=== PATIENT | male | born 1985 | race Caucasian/White ===

== ENCOUNTER 2023-02-19 15:36 | Emergency (ER) | payer SELFPAY ==
--- NOTE | 2023-02-19 16:11 | ED Upper Extremity ---
General Stated Complaint: FALL - LEFT ARM INJ Source: patient Exam Limitations: no limitations History of Present Illness Date Seen by Provider: Feb 19, 2023 Time Seen by Provider: 16:10 Initial Comments Patient is a 37-year-old male who presents ED with left upper extremity pain. Patient states he was on a 12 foot ladder going up onto a roof 15 minutes before arrival and loss his footing and fell. States he was about 9 to 10 foot when he fell off landed on his left arm. Patient heard a snap. He states he had to adjust his arm and manipulate to relieve pain. Pain located left shoulder left wrist left elbow. Palpable pulses distally of the left hand. Denies hitting his head, loss of conscious, chest pain, shortness of breath, Phill pain, mid to lower back pain. Patient took hydrocodone about an hour and a half ago. Patient denies headache, dizziness, nausea vomiting, diarrhea, chest pain, shortness of breath, abdominal pain Allergies and Home Medications Allergies Coded Allergies: No Known Drug Allergies (Unverified , 02/19/23) Patient Home Medication List Home Medication List Reviewed: Yes Ondansetron (Ondansetron Odt) 4 Mg Tab.rapdis, 4 MG SL Q4H PRN for NAUSEA/VOMITING Prescribed by: JEWELS PHAM on 02/19/23 1720 Oxycodone HCl/Acetaminophen (Oxycodone-Acetaminophen 10-325) 10 Mg-325 Mg Tablet, 1 TAB PO Q4H PRN for PAIN Prescribed by: JEWELS PHAM on 02/19/23 1720 Review of Systems Constitutional: No chills, No diaphoresis, No malaise, No weakness EENTM: No ear pain, No blurred vision, No vision loss, No mouth pain, No mouth swelling Respiratory: No cough, No orthopnea, No short of breath Cardiovascular: No chest pain Gastrointestinal: No abdominal pain, No diarrhea Genitourinary: No decreased output, No discharge Musculoskeletal: joint pain, joint swelling Skin: No change in color, No change in hair/nails All Other Systems Reviewed Negative Unless Noted: Yes Physical Exam Vital Signs Vital Signs - First Documented 02/19/23 16:02 Pulse 68 Resp 20 B/P (MAP) 163/99 (120) Pulse Ox 96 O2 Delivery Room Air Capillary Refill : Height, Weight, BMI Height: '" Weight: lbs. oz. kg; BMI Method: General Appearance: WD/WN, no apparent distress HEENT: PERRL/EOMI, normal ENT inspection, TMs normal, pharynx normal Neck: non-tender, full range of motion, supple Cardiovascular: regular rate, rhythm, no edema, no gallop, no JVD Respiratory: chest non-tender, lungs clear, normal breath sounds, no respiratory distress, no accessory muscle use Gastrointestinal: normal bowel sounds, non tender, soft, no organomegaly Back: normal inspection, no CVA tenderness Shoulder: pain (Tenderness to left anterior and posterior shoulder. Left mid humerus tenderness with bone deformity) Elbow/Forearm: Left, bone tenderness (Left anterior lateral posterior elbow tenderness without evidence of dislocation.) Wrist: Yes bone tenderness (Tenderness left distal radius and ulna. Palpable pulses. Marble Installation Helper strength 5-5), Yes pain, Yes soft tissue tenderness Neurologic/Psychiatric: crown buffer II-XII nml as tested, no motor/sensory deficits, alert, normal mood/affect, oriented x 3 Progress/Results/Core Measures Results/Orders My Orders Orders - NGA SHARPE Shoulder, Left, 3 Views (02/19/23 16:06) Wrist, Left, 3 Views Or More (02/19/23 16:06) Fentanyl Inj (Sublimaze Injection) (02/19/23 16:18) Humerus, Left, 2 Views (02/19/23 16:41) Elbow, Left, 2 Views (02/19/23 16:06) Hydromorphone Injection (Dilaudid Inject (02/19/23 17:15) Hydromorphone Injection (Dilaudid Inject (02/19/23 18:00) Fentanyl Inj (Sublimaze Injection) (02/19/23 18:36) Medications Given in ED Current Medications Medications Dose Ordered Sig/Kelton Route Start Time Stop Time Status Last Admin Dose Admin Hydromorphone HCl 0.5 mg ONCE ONCE IV 02/19/23 17:15 02/19/23 17:16 DC 02/19/23 17:21 0.5 MG Hydromorphone HCl 0.5 mg ONCE ONCE IV 02/19/23 18:00 02/19/23 18:01 DC 02/19/23 17:58 0.5 MG Vital Signs/I&O 02/19/23 02/19/23 16:02 18:57 Pulse 68 69 Resp 20 20 B/P (MAP) 163/99 (120) 164/93 Pulse Ox 96 96 O2 Delivery Room Air Room Air Departure Communication (PCP) Nonactivated trauma. Patient fell about 9 to 10 feet off a 12 foot ladder while getting on the roof. Landed on his left arm. Denies hitting his head or loss of consciousness. Patient states he heard a snap. States his arm turned backwards. States he was able to manipulate his arm with some improvement in alignment but reports a deformity mid humerus. Complaining of left shoulder, left elbow and left wrist pain. Patient on arrival neurovascular tact left u pper extremity. Able to extend and flex his left wrist. No evidence of radial nerve injury. No evidence suggesting compartment syndrome. Patient was given a dose of fentanyl and Dilaudid for pain control. Patient was discussed with orthopedic Dr. Gallegos regarding the imaging as patient suffered a comminuted displaced abnormally angulated fracture of the left mid humeral diaphysis. Recommends coaptation splint. Apply pressure to help reduce some of the fragments when putting oin splint. X-ray of the right wrist shows a impacted and intra-articular distal radius fracture without significant displacement or angulation. There also appears to be an ulnar styloid fracture. X-ray of the left elbow shows mildly displaced radial head fracture and radial neck fracture. Large joint effusion. No evidence of dislocation. Patient was placed in a sugar-tong splint. Recommends following up in the office by calling tomorrow morning. Discharge with pain medication. Discussed with patient that if he develops any increasing pain of that left arm he needs return back to the ED for further evaluation. This type of fracture increases chance of compartment syndrome. No evidence suggesting nerve injury at this time. Neurovascular intact left arm. Patient has no head pain, neck pain, chest pain, abdominal pain, middle lower back pain suggesting additional imaging. No distal numbness and tingling. No evidence of open fracture. Does have a small abrasion to the left posterior elbow. Follow-up with Dr. Gallegos office by calling tomorrow morning. Discharged with oxycodone Impression Primary Impression: Closed fracture of humerus Additional Impressions: Wrist fracture Radial head fracture Disposition: 01 HOME, SELF-CARE Condition: Stable Departure-Patient Inst. Decision time for Depature: 17:17 Referrals: MARLON GALLEGOS MD Patient Instructions: Upper Arm Fracture ED Add. Discharge Instructions: Recommend follow-up with orthopedic tomorrow by contacting their office. If increasing pain to return back to ED. Provided pain medication. If skin color changes left arm to return back to ED Scripts Ondansetron (Ondansetron Odt) 4 Mg Tab.rapdis 4 MG SL Q4H PRN for NAUSEA/VOMITING, #8 TAB Prov: NGA SHARPE 02/19/23 Oxycodone HCl/Acetaminophen (Oxycodone-Acetaminophen 10-325) 10 Mg-325 Mg Tablet 1 TAB PO Q4H PRN for PAIN, #20 TAB Prov: NGA SHARPE 02/19/23 Work/School Note: Work Release Form Date Seen in the Emergency Department: Feb 19, 2023 Return to Work: Feb 25, 2023 NGA SHARPE Feb 19, 2023 16:11
[2023-02-19] MEDS ORDERED: fentaNYL INJ 100 MCG/2 ML AMP IVP STA ×2 (16:18→18:36)
--- NOTE | 2023-02-19 16:58 | Diagnostic Imaging Report ---
EXAMINATION: Left humerus radiographs, 2 views. COMPARISON: None. HISTORY: 37-year-old male, left humerus pain. Fracture. FINDINGS: There is a comminuted, displaced, and abnormally angulated fracture of the mid humeral diaphysis. There is no identified radiopaque foreign body. IMPRESSION: 1. Comminuted, displaced, and abnormally angulated fracture of the left mid humeral diaphysis. Dictated by: Dictated on workstation # [id number]
--- NOTE | 2023-02-19 17:01 | Diagnostic Imaging Report ---
EXAMINATION: Left shoulder radiographs, 3 views. COMPARISON: None. HISTORY: 37-year-old male, shoulder pain. Fall. FINDINGS: The acromioclavicular joint is normally aligned. There are no acromioclavicular degenerative changes. Humeral head is normally positioned relative to the glenoid. The glenohumeral joint space is well maintained. There is a comminuted, displaced, abnormally angulated fracture of the left mid humeral diaphysis. There is no additional identified more proximally located fracture. IMPRESSION: 1. Comminuted, displaced, abnormally angulated fracture of the mid left humeral diaphysis. 2. No additional identified acute fracture specifically at the level of the left shoulder. Dictated by: Dictated on workstation # [id number]
--- NOTE | 2023-02-19 17:02 | Diagnostic Imaging Report ---
EXAMINATION: Left elbow radiographs, 2 views. COMPARISON: None. HISTORY: 37-year-old male, fall. Left elbow pain. FINDINGS: There is a comminuted, displaced, and abnormally angulated fracture of the left mid humeral diaphysis. There is a large elbow joint effusion. There is a mildly displaced fracture of the radial head and neck. The elbow is not currently dislocated. There is degenerative type enthesopathy at the distal triceps tendon insertion. There are some limitations of the study given difficulties with positioning of the frontal view. IMPRESSION: 1. Mildly displaced fracture of the left radial head and neck. 2. Large elbow joint effusion. 3. Elbow is not currently dislocated. 4. Comminuted, displaced, and abnormally angulated fracture of the left mid humeral diaphysis. Dictated by: Dictated on workstation # [id number]
--- NOTE | 2023-02-19 17:04 | Diagnostic Imaging Report ---
INDICATION: Fall with left wrist pain. TIME OF EXAM: 4:56 PM. FINDINGS: Three views of the left wrist demonstrate a comminuted impacted and intra-articular fracture of the distal radius. No significant displacement or angulation is seen. There appears to be a fracture of the ulnar styloid as well. The carpal bones are intact. The visualized metacarpals are unremarkable. IMPRESSION: Impacted and intra-articular distal radius fracture without significant displacement or angulation. There also appears to be an ulnar styloid fracture. Dictated by: Dictated on workstation # [id number]
[2023-02-19] MEDS ORDERED: HYDROmorphone 2 MG/ML VIAL (DILAUDID) IV ONE ×2 (17:15→18:00)
[2023-02-19] MEDS ORDERED: OXYC-556 PO (17:20)
[2023-02-19] MEDS ORDERED: ONDA4TAB11 SL (17:20)
[2023-02-19 18:57] VITALS: BP 164/93
== END 2023-02-19 19:05 | disposition home or self-care (01) ==
LOC: ER 15:37
DX: S42.352A Displaced comminuted fracture of shaft of humerus, left arm, initial encounter for closed fracture (principal); S52.572A Other intraarticular fracture of lower end of left radius, initial encounter for closed fracture; S52.122A Displaced fracture of head of left radius, initial encounter for closed fracture; S52.132A Displaced fracture of neck of left radius, initial encounter for closed fracture; S52.612A Displaced fracture of left ulna styloid process, initial encounter for closed fracture; W11.XXXA Fall on and from ladder, initial encounter
CPT/HCPCS: 29105; 73030; 73060; 73070; 73110

== ENCOUNTER 2023-02-21 05:35 | Outpatient (CLI) | payer SELFPAY ==
[~2023-02-21] VITALS: Ht 193 cm; Wt 109.1 kg
[~2023-02-21 05:35] MED LIST: ONDA4TAB11 SL; OXYC-556 PO
== END 2023-02-21 13:08 | disposition home or self-care (01) ==
LOC: PREOP 05:35
PROVIDERS: ATTEND Orthopaedic Surgery
DX: Z01.818 Encounter for other preprocedural examination (principal)

== ENCOUNTER 2023-02-22 08:54 | Day surgery (SDC) | payer SELFPAY ==
--- NOTE | 2023-02-21 13:54 | HISTORY AND PHYSICAL ---
DATE OF SERVICE: 02/22/2023 This will be for outpatient surgery on 02/22/2023 for internal fixation of his left humerus and left distal radius. HISTORY: The patient is a 37-year-old right-hand dominant gentleman who fell from a roof on Saturday. He was evaluated in the Emergency Department where he underwent closed reduction by ER provider for displaced left humeral shaft fracture, an impacted distal radius fracture, and nondisplaced radial neck fracture. He denies paresthesias. He reports no prior history of arm problems. Radiographs reveal a comminuted midshaft left humerus fracture what appears to be a nondisplaced radial head fracture, but there is not a good AP projection and what appears to be a minimally displaced intra-articular distal radius fracture, though there is not any adequate lateral radiograph. REVIEW OF SYSTEMS: No chest pain, no shortness of breath, no dysuria. PAST MEDICAL HISTORY: None. PAST SURGICAL HISTORY: Herniorrhaphy. SOCIAL HISTORY: The patient is self-employed. FAMILY HISTORY: Noncontributory. MEDICATIONS: Oxycodone. ALLERGIES: NO KNOWN DRUG ALLERGIES. SOCIAL HISTORY: The patient denies tobacco use. He drinks alcohol socially. PHYSICAL EXAMINATION: GENERAL: The patient is well-developed, well-nourished, in no acute distress. HEENT: Normocephalic, atraumatic. Pupils equal, round, reactive to light. Oropharynx is clear. NECK: Supple. No lymphadenopathy. LUNGS: Clear to auscultation bilaterally. HEART: Regular rhythm. ABDOMEN: Soft, nontender, nondistended. EXTREMITIES: Left upper extremity was splinted. He has intact MCP extension, finger abduction, thumb IP flexion and extension. Sensation is intact to light touch in radial, ulnar and median distribution. IMPRESSION: Displaced left humeral shaft fracture and a distal radius fracture. PLAN: Open reduction internal fixation of left humerus internal with closed reduction and percutaneous pin fixation of distal radius versus open reduction and internal fixation. The risks, benefits, options, ramifications and recovery were discussed at length with the patient. He understands and wishes to proceed. Job ID: [id number] DocumentID: [id number] Dictated Date: 02/21/2023 10:17:10 Grain Picker Date: 02/21/2023 13:52:00 Dictated By: MARLON BROWN MD
[~2023-02-22] VITALS: Ht 193 cm; Wt 109.1 kg
[2023-02-22] VITALS (11 sets, daily range): BP systolic 130–159; BP diastolic 72–106
[2023-02-22] MEDS ORDERED: fentaNYL INJ 100 MCG/2 ML AMP IV ONE (09:45)
[2023-02-22] MEDS ORDERED: ceFAZolin INJECTION 1,000 MG ONE (09:53)
[2023-02-22] MEDS ORDERED: NS (IVPB) 50 ML ONE ×2 (09:53→11:05)
[2023-02-22] MEDS ORDERED: ceFAZolin INJECTION 1,000 MG in NS (IVPB) 50 ML IV ONE (10:00)
[2023-02-22] MEDS ORDERED: CATHETER FLUSH 10 ML SYR IVP PRN (10:00)
[2023-02-22] MEDS: LACTATED RINGERS 1,000 ML IV PRN ×2 (10:00→10:55)
[2023-02-22] MEDS ORDERED: morphine INJ 10 MG/ML 1ML (SYR OR VIAL) IVP ONE (10:15)
[2023-02-22] MEDS ORDERED: BUPIVACAINE 0.25% 30 ML (SENSORCAINE) VIAL ONE (10:15)
[2023-02-22] MEDS ORDERED: HYDROmorphone 2 MG/ML VIAL (DILAUDID) IV ONE (10:15)
[2023-02-22] MEDS ORDERED: ONDANSETRON 4 MG/2 ML (SDV) Z0FRAN IVP PRN (10:15)
[2023-02-22] MEDS ORDERED: proPOfol 200 MG/20 ML (DIPRIVAN) VIAL IV ONE (10:20)
[2023-02-22] MEDS ORDERED: LIDOCAINE PF 2% 5 ML (XYLOCAINE) VIAL ONE (10:20)
[2023-02-22] MEDS ORDERED: fentaNYL INJ 100 MCG/2 ML AMP ONE (10:20)
[2023-02-22] MEDS ORDERED: ONDANSETRON 4 MG/2 ML (SDV) Z0FRAN ONE (10:20)
[2023-02-22] MEDS ORDERED: MIDAZOLAM 2 MG/2 ML (VERSED) VIAL ONE (10:21)
--- NOTE | 2023-02-22 10:27 | Progress Note-Pre Operative ---
Pre-Operative Progress Note Date of Available H&P: Feb 21, 2023 Date H&P Reviewed: Feb 22, 2023 Time H&P Reviewed: 10:14 Changes from last HP none Pre-Operative Diagnosis: left humeral shaft and distal radius fractures MARLON BROWN MD Feb 22, 2023 10:27
--- NOTE | 2023-02-22 10:28 | Progress Note-Post Operative ---
Post-Operative Progess Note Surgeon (s)/Latex Foam Worker (s) Surgeon MARLON BROWN MD Latex Foam Worker: Peña Rubio Pre-Operative Diagnosis left humeral shaft and distal radius fractures Post-Operative Diagnosis left humeral shaft and distal radius fractures Procedure & Operative Findings Date of Procedure 02/22/23 Procedure Performed/Findings ORIF left humerus shaft fracture and left distal radius closed reduction and percutaneous pin fixation Anesthesia Type GETA Estimated Blood Loss Estimated blood loss (mL): 200ml Specimens/Packing Specimens Removed none Packing: none MARLON BROWN MD Feb 22, 2023 10:28
[2023-02-22] MEDS ORDERED: oxyCODONE/APAP 5/325MG (PERCOCET 5) TABLET PO PRN (10:45)
[2023-02-22] MEDS ORDERED: ceFAZolin INJECTION 2,000 MG ONE (11:04)
[2023-02-22] MEDS ORDERED: HYDROmorphone 2 MG/ML VIAL (DILAUDID) ONE ×2 (11:06→13:04)
[2023-02-22] MEDS ORDERED: MEPERIDINE (DEMEROL) INJ 50 MG/ML ONE (12:41)
[2023-02-22] MEDS ORDERED: SEVOFLURANE (ULTANE) 15 ML INHAL SOLN ONE (12:44)
[2023-02-22] MEDS ORDERED: MEPERIDINE (DEMEROL) INJ 50 MG/ML IVP ONE (13:00)
--- NOTE | 2023-02-22 14:14 | Anesthesia-General Post-Op ---
General Patient Condition Mental Status/LOC: Same as Preop Cardiovascular: Satisfactory Nausea/Vomiting: Absent Respiratory: Satisfactory Pain: Controlled Complications: Absent Post Op Complications Complications None Follow Up Care/Instructions Patient Instructions None needed. Anesthesia/Patient Condition Patient Condition Patient is doing well, no complaints, stable vital signs, no apparent adverse anesthesia problems. No complications reported per nursing. ROCIO DWYER DO Feb 22, 2023 14:14
--- NOTE | 2023-02-22 17:37 | Diagnostic Imaging Report ---
INDICATION: ORIF of humeral fracture COMPARISON: 02/19/2023 IMPRESSION: ORIF of mid humeral shaft fracture utilizing low contact plate and screw fixation. Air Kerma is 0.61 mGy. Please see procedure report for more details. Dictated by: Dictated on workstation # [id number]
--- NOTE | 2023-02-22 17:52 | Diagnostic Imaging Report ---
INDICATION: Radial fracture. Fluoroscopy was utilized during placement of K-wires across the distal radial fracture line. Final image reveals near anatomic alignment of fracture fragments without obvious complication. IMPRESSION: Open reduction and internal fixation of distal radial fracture fragments. Dictated by: Dictated on workstation # [id number]
--- NOTE | 2023-02-22 20:55 | OPERATIVE REPORT ---
DATE OF SERVICE: 02/22/2023 PREOPERATIVE DIAGNOSES: 1. Closed displaced left humerus shaft fracture. 2. Closed displaced intra-articular left distal radius fracture. POSTOPERATIVE DIAGNOSES: 1. Closed displaced left humerus shaft fracture. 2. Closed displaced intra-articular left distal radius fracture. PROCEDURES: 1. Open reduction and internal fixation of the left humerus. 2. Closed reduction and percutaneous pin fixation of the left distal radius. SURGEON: Kirk Brown MD PROCESS DEVELOPMENT MANAGER: Peña Rubio, who assisted throughout the procedure and closed the incision. ANESTHESIA: General endotracheal by Dr. Mejia. TOURNIQUET TIME: Not applicable. ESTIMATED BLOOD LOSS: 200 mL. MATERIALS: Synthes 7-hole 4.5 plate. The patient was transferred to recovery room awake and in stable condition. POSTOPERATIVE PLAN: Early range of motion of the elbow and shoulder with protected activities for the left wrist for 6 weeks with pin fixation for 4 weeks. STATEMENT OF MEDICAL NECESSITY: The patient is a 37-year-old right hand dominant gentleman who fell on Saturday on his left upper extremity. He had a comminuted left midshaft humerus fracture, a nondisplaced radial head fracture and an intra-articular dorsally angulated distal radius fracture. The patient was counseled regarding treatment options and elected to proceed with surgical intervention. DESCRIPTION OF PROCEDURE: After risks and benefits of the procedure were discussed and questions were answered and informed consent was signed and placed on the chart, the operative sites were confirmed in the preoperative holding initialed by surgeon. The patient was then transported to the operating room and after adequate levels of general endotracheal anesthetic were obtained, a timeout was called confirming the operative site. The elbow was inspected fluoroscopically and had full range of motion with a nondisplaced radial head fracture noted. The distal radius was then viewed fluoroscopically. This was a far distal fracture was not felt to be amenable to plating. This could be reduced however and length was maintained. The left upper extremity was then prepped and draped in the usual sterile fashion. An anterolateral approach was used to the humerus. The underlying soft tissues were carefully dissected. The plane between the biceps and [ ] was utilized and then the [ ] was elevated off of the humerus in a subperiosteal fashion. No retractors were placed directly on the humerus and the humerus was exposed subperiosteally. There was a large butterfly fragment, which was reduced under direct visualization. A 7-hole 4.5 compression plate was placed and this was placed under direct visualization to ensure there were no soft tissues underlying the plate. Three cortical screws were placed proximally and three cortical screws distally. Two central screw holes were used to lag to the butterfly fragment. There was some step-off of the butterfly fragment distally, but this was felt to be acceptable. No far cortical penetration was performed. The radial nerve was inspected and intact with no impingement noted. The butterfly fragment was exposed to ensure there was no soft tissue entrapped within that. The humerus was taken through range of motion and patient had full shoulder motion with normal rotation. The plate and screw construct was then closely inspected again to ensure that there was no soft tissue impingement there were at the fracture sites. None was noted. The wound was copiously irrigated. 0 Vicryl was used for the deep subcutaneous layer, 3-0 Vicryl for the superficial subcutaneous layer, felipe used on the skin. A soft dressing was applied and under fluoroscopic visualization, the distal radius was reduced and two 0.5 K-wires were placed in a crisscross fashion, one distally and one proximally. This captured the fragments and kept radius out to length. There was marked dorsal comminution. The wrist was taken through range of motion under live time fluoroscopy and the repair was stable. The pins were bent and cut. A sandwich type splint was placed just over the distal forearm not involving the elbow and the patient was transported to the recovery room awake and in stable condition. Job ID: [id number] DocumentID: [id number] Dictated Date: 02/22/2023 12:38:25 Sanding Supervisor Date: 02/22/2023 20:53:00 Dictated By: KIRK BROWN MD
== END 2023-02-22 14:43 | disposition home or self-care (01) ==
LOC: SDC 08:54
PROVIDERS: ATTEND Orthopaedic Surgery
DX: S42.302A Unspecified fracture of shaft of humerus, left arm, initial encounter for closed fracture (principal); S52.572A Other intraarticular fracture of lower end of left radius, initial encounter for closed fracture; W13.2XXA Fall from, out of or through roof, initial encounter
CPT/HCPCS: 76000; 87081

== ENCOUNTER 2023-04-18 15:29 | Outpatient (CLI) | payer MEDICAID ==
[~2023-04-18] VITALS: Ht 193 cm; Wt 109.1 kg
== END 2023-04-18 17:24 | disposition home or self-care (01) ==
LOC: PREOP 15:29
PROVIDERS: ATTEND Orthopaedic Surgery
DX: Z01.818 Encounter for other preprocedural examination (principal)

== ENCOUNTER 2023-04-24 09:25 | Day surgery (SDC) | payer MEDICAID ==
--- NOTE | 2023-04-18 14:06 | HISTORY AND PHYSICAL ---
ADMISSION HISTORY AND PHYSICAL This will be for outpatient surgery on 04/24/2023 for left humerus internal fixation. HISTORY: The patient is a 37-year-old right hand dominant gentleman who underwent internal fixation for left humeral shaft fracture on 02/22/2023. He has been doing well and presented for followup and his hardware had failed distally with displacement of the fracture. Because of this is recommended the patient undergo operative fixation. REVIEW OF SYSTEMS: No chest pain, no shortness of breath. No dysuria. PAST MEDICAL HISTORY: None. PAST SURGICAL HISTORY: Herniorrhaphy. SOCIAL HISTORY: The patient is self-employed. FAMILY HISTORY: Noncontributory. MEDICATIONS: Hydrocodone as needed. ALLERGIES: No known. SOCIAL HISTORY: The patient denies tobacco use. He drinks alcohol socially. PHYSICAL EXAMINATION: GENERAL: The patient is well-developed, well-nourished, in no acute distress. HEENT: Normocephalic, atraumatic. Pupils are equal, round and reactive to light. Oropharynx is clear. NECK: Supple. No lymphadenopathy. LUNGS: Clear to auscultation bilaterally. HEART: Regular rate and rhythm. ABDOMEN: Soft, nontender, nondistended. EXTREMITIES: The left arm demonstrates well-healed incision over his humerus; however, there is some deformity noted and motion noted with stress at the fracture site. Radiographs reveal a comminuted displaced fracture with cutout of the hardware distally. IMPRESSION: Displaced left humerus fracture, status post internal fixation. PLAN: Open reduction and internal fixation with revision fixation and possible bone grafting. The risks, benefits, options, ramifications and recovery were discussed at length with the patient. He understands and wishes to proceed. This will be for outpatient surgery on 04/24/2023. Job ID: [id number] DocumentID: [id number] Dictated Date: 04/18/2023 11:29:52 Quilt Maker Date: 04/18/2023 12:53:00 Dictated By: MARLON BROWN MD
[2023-04-24] VITALS (12 sets, daily range): BP systolic 96–155; BP diastolic 53–102
[~2023-04-24] VITALS: Ht 193 cm; Wt 109.1 kg
[~2023-04-24 09:25] MED LIST changes: +oxyCODONE/APAP 5/325MG (PERCOCET 5) TABLET PO PRN
[2023-04-24] MEDS ORDERED: ceFAZolin INJECTION 1,000 MG in NS (IVPB) 50 ML IV ONE (09:45)
[2023-04-24] MEDS: LACTATED RINGERS 1,000 ML IV PRN ×2 (10:29→13:09)
--- NOTE | 2023-04-24 11:08 | Progress Note-Pre Operative ---
Pre-Operative Progress Note Date of Available H&P: Apr 18, 2023 Date H&P Reviewed: Apr 24, 2023 Time H&P Reviewed: 11:07 Changes from last HP none Pre-Operative Diagnosis: left humerus shaft delayed union MARLON BROWN MD Apr 24, 2023 11:08
--- NOTE | 2023-04-24 11:09 | Progress Note-Post Operative ---
Post-Operative Progess Note Surgeon (s)/Manager Integrated (s) Surgeon MARLON BROWN MD Manager Integrated: Peña Rubio Pre-Operative Diagnosis left humerus shaft delayed union Post-Operative Diagnosis left humerus shaft delayed union Procedure & Operative Findings Date of Procedure 04/24/23 Procedure Performed/Findings hardware removal and open reduction and internal fixation of the left humerus Anesthesia Type GETA Estimated Blood Loss Estimated blood loss (mL): 400ml Specimens/Packing Specimens Removed none Packing: none MARLON BROWN MD Apr 24, 2023 11:09
[2023-04-24] MEDS ORDERED: proPOfol 200 MG/20 ML (DIPRIVAN) VIAL IV ONE ×2 (11:25→12:09)
[2023-04-24] MEDS ORDERED: fentaNYL INJ 100 MCG/2 ML AMP ONE ×2 (11:25→12:09)
[2023-04-24] MEDS ORDERED: ONDANSETRON 4 MG/2 ML (SDV) Z0FRAN ONE (11:25)
[2023-04-24] MEDS ORDERED: LIDOCAINE PF 2% 5 ML (XYLOCAINE) VIAL ONE (11:25)
[2023-04-24] MEDS ORDERED: MIDAZOLAM 2 MG/2 ML (VERSED) VIAL ONE (11:25)
[2023-04-24] MEDS ORDERED: BUPIVACAINE 0.25% 30 ML (SENSORCAINE) VIAL ONE (11:33)
[2023-04-24] MEDS ORDERED: ceFAZolin INJECTION 1,000 MG ONE (12:04)
[2023-04-24] MEDS ORDERED: ceFAZolin INJECTION 1,000 MG VIAL IV ONE (12:15)
[2023-04-24] MEDS ORDERED: SEVOFLURANE (ULTANE) 15 ML INHAL SOLN ONE (13:19)
[2023-04-24] MEDS ORDERED: BUPIVACAINE 0.25% 30 ML (SENSORCAINE) VIAL INJ ONE (13:54)
--- NOTE | 2023-04-24 13:55 | Anesthesia-General Post-Op ---
General Patient Condition Mental Status/LOC: Same as Preop Cardiovascular: Satisfactory Nausea/Vomiting: Absent Respiratory: Satisfactory Pain: Controlled Complications: Absent Post Op Complications Complications None Follow Up Care/Instructions Patient Instructions None needed. Anesthesia/Patient Condition Patient Condition Patient is doing well, no complaints, stable vital signs, no apparent adverse anesthesia problems. No complications reported per nursing. CHRIS LOZOYA BISQUE WARE DIPPER Apr 24, 2023 13:55
[2023-04-24] MEDS ORDERED: HYDROmorphone 2 MG/ML VIAL (DILAUDID) IV ONE (14:00)
[2023-04-24] MEDS ORDERED: fentaNYL INJ 100 MCG/2 ML AMP IVP ONE (14:00)
[2023-04-24] MEDS ORDERED: ONDANSETRON 4 MG/2 ML (SDV) Z0FRAN IVP PRN (14:00)
[2023-04-24] MEDS ORDERED: MEPERIDINE (DEMEROL) INJ 50 MG/ML IVP ONE (14:00)
[2023-04-24] MEDS ORDERED: morphine INJ 10 MG/ML 1ML (SYR OR VIAL) IVP ONE (14:00)
--- NOTE | 2023-04-24 15:39 | Diagnostic Imaging Report ---
INDICATION: Left humeral fracture, revision. TECHNIQUE: Intraoperative views were obtained with the portable intensifier in Surgery. Two views were obtained with 14.8 seconds of fluoroscopy time used. 0.57 mGy exposure. FINDINGS: Intraoperative views demonstrate plate and screws across the mid humeral shaft fracture with anatomic alignment of the fracture fragments. IMPRESSION: Intraoperative views demonstrate ORIF of the humeral fracture with anatomic alignment. Dictated by: Dictated on workstation # [id number]
[2023-04-24] MEDS ORDERED: oxyCODONE/APAP 10/325MG (PERCOCET 10) TABLET PO ONE (16:00)
--- NOTE | 2023-04-24 21:20 | OPERATIVE REPORT ---
DATE OF SERVICE: 04/24/2023 PREOPERATIVE DIAGNOSIS: Left humerus delayed union, status post internal fixation. POSTOPERATIVE DIAGNOSIS: Left humerus delayed union, status post internal fixation. PROCEDURE: Left humerus hardware removal with repeat internal fixation. SURGEON: Kirk Brown MD LACTATION CONSULTANT: Peña Rubio, who assisted throughout the procedure and closed the incision. ANESTHESIA: General endotracheal by Peña Cotter CRNA. ESTIMATED BLOOD LOSS: 400 mL DRAINS: None. COMPLICATIONS: None. MATERIALS: Synthes large fragment plate. The patient was transferred to recovery room in awake and stable condition. POSTOPERATIVE PLAN: Immobilization for 2 weeks followed by gentle range of motion. STATEMENT OF MEDICAL NECESSITY: The patient is a 37-year-old right hand dominant gentleman who underwent internal fixation of her left humerus fracture about 6 weeks ago. Early motion was started because the patient also had a radial neck fracture and a wrist fracture. The fear was that he would develop significant stiffness of motion was not initiated. He returned to the office at 2 weeks postop with well-aligned fracture. However, at 6 weeks, there was found to be displacement. Because of this, it was recommended the patient undergo operative fixation. DESCRIPTION OF PROCEDURE: After risks and benefits of the procedure were discussed and questions were answered, an informed consent was obtained and placed on chart. The operative site was confirmed in the preoperative holding area initialed by surgeon. The patient was then transferred to the operating room and after adequate levels of general endotracheal anesthetic were obtained, a timeout was called, confirming the operative site. Left upper extremity was prepped and draped in the usual sterile fashion. The previous incision was utilized. The interval between the biceps and brachialis had previously been developed was opened bluntly with no sharp dissection carried out. This was extended distally, being careful to elevate the brachioradialis in a subperiosteal fashion, retract the soft tissues laterally in order to protect the radial nerve. The previously placed hardware was removed. Cultures were obtained, although there was no evidence of purulence or necrotic tissue. The fracture was then reduced and a 10-hole 4.5 large fragment plate was placed with 5 cortical screws placed in the proximal fragment and 4 in the distal fragment, all with excellent purchase. One locking screw was placed in the distal fragment in order to ensure adequate purchase. The elbow and shoulder were taken through range of motion. The humerus was rotated and no instability at the fracture site was noted. The wound was copiously irrigated. The brachialis was loosely approximated with 0 Vicryl. The deep subcutaneous layer was closed with 0 Vicryl. A 3-0 Vicryl was used for the superficial [ ] subcutaneous layer and felipe used on the skin. Incision was infiltrated with plain Marcaine. A soft dressing was applied and the patient was transported to recovery room awake and in stable condition. Job ID: [id number] DocumentID: [id number] Dictated Date: 04/24/2023 13:44:01 Data Reporting Analyst Date: 04/24/2023 21:18:00 Dictated By: KIRK BROWN MD
== END 2023-04-24 17:20 | disposition home or self-care (01) ==
LOC: SDC 09:25
PROVIDERS: ATTEND Orthopaedic Surgery
DX: S42.302G Unspecified fracture of shaft of humerus, left arm, subsequent encounter for fracture with delayed healing (principal)
CPT/HCPCS: 76000; 87070; 87075; 87081; 87205